=== PATIENT | male | born 1955 ===

== ENCOUNTER 2024-06-18 06:00 | Outpatient (RCR) | payer OTHER, SELFPAY | END 2024-06-26 23:59 | disposition home or self-care (01) | LOC: GPT 06:00 | PROVIDERS: Visit Provider Nurse Practitioner | DX: M25.552 Pain in left hip (principal) | CPT/HCPCS: 97110; 97112; 97140; 97163 ==

== ENCOUNTER 2024-06-27 06:00 | Outpatient (RCR) | payer OTHER, SELFPAY | END 2024-07-26 23:59 | disposition home or self-care (01) | LOC: GPT 06:00 | PROVIDERS: Visit Provider Nurse Practitioner | DX: M25.552 Pain in left hip (principal) | CPT/HCPCS: 97110; 97112; 97140; 97530 ==

== ENCOUNTER 2024-07-27 06:00 | Outpatient (RCR) | payer OTHER, SELFPAY | END 2024-08-26 23:59 | disposition home or self-care (01) | LOC: GPT 06:00 | PROVIDERS: Visit Provider Nurse Practitioner | DX: M25.552 Pain in left hip (principal) | CPT/HCPCS: 97110; 97112; 97140; 97164; 97530 ==